=== PATIENT | female | born 2005 | race Caucasian/White ===

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

== ENCOUNTER → 2024-02-29 | Outpatient (CLI) | payer MEDICAID ==
[2024-02-29 12:58] LABS: THYROID STIMULATING HORMONE 1.21 uIU/ML (0.48-4.17)
[2024-02-29 12:59] LABS: FREE T4 1.03 NG/DL (0.83-1.43); PROLACTIN 17.69 NG/ML
[2024-02-29 13:00] LABS: ESTRADIOL 272.2 PG/ML; FOLLICLE STIMULATING HORMONE 4.2 mIU/ML; LUTEINIZING HORMONE 11.2 mIU/ML
== END ==
LOC: M PLALAB 10:27
PROVIDERS: ATTEND Specialist
DX: N92.6 Irregular menstruation, unspecified (principal)

== ENCOUNTER → 2024-03-07 | Outpatient (REF) | payer MEDICAID | LOC: M LAB REF 18:40 | PROVIDERS: ATTEND Physician Assistant Medical | DX: B34.9 Viral infection, unspecified (principal) ==

== ENCOUNTER → 2024-03-14 | Outpatient (REF) | payer MEDICAID | LOC: M LAB REF 16:16 | PROVIDERS: ATTEND Physician Assistant | DX: J02.9 Acute pharyngitis, unspecified (principal) ==

== ENCOUNTER → 2024-05-14 | Outpatient (CLI) | payer MEDICAID ==
[2024-05-14 18:49] LABS: BASO # 0.1 10^3/uL (0.0-0.2); BASO % 0.6 % (0.0-1.0); EOS # 1.7 10^3/uL (0.0-0.5); HEMATOCRIT 39.5 % (36.0-47.0); HEMOGLOBIN 12.6 g/dl (12.0-15.5); LYMPH # 2.2 10^3/uL (1.5-5.0); LYMPH % 27.2 % (24.0-44.0); MEAN CORPUSCULAR HEMOGLOBIN 28.2 pg (27.0-33.0); MEAN CORPUSCULAR HGB CONC 31.9 g/dl (32.0-36.5); MEAN CORPUSCULAR VOLUME 88.4 fl (80.0-96.0); MONO # 0.6 10^3/uL (0.0-0.8); MONO % 7.6 % (2.0-8.0); NEUTROPHILS # 3.6 10^3/uL (1.5-8.5); PLATELET COUNT, AUTOMATED 267 10^3/uL (150-450); RED BLOOD COUNT 4.47 10^6/uL (4.00-5.40); WHITE BLOOD COUNT 8.2 10^3/uL (4.0-10.0)
[2024-05-14 18:50] LABS: EOS % 20.5 % (0.0-3.0)
== END ==
LOC: M PLALAB 15:18
PROVIDERS: ATTEND Nurse Practitioner Family
DX: J45.30 Mild persistent asthma, uncomplicated (principal)